=== PATIENT | male | born 2005 | race African-American/Black ===

== ENCOUNTER 2025-11-10 13:44 | Emergency (ER) | payer MEDICAID ==
[~2025-11-10] VITALS: Ht 167.6 cm; Wt 79.0 kg
[2025-11-10 13:56] VITALS: O2SAT 99
[2025-11-10] MEDS: DOCUSATE SODIUM SUGAR FREE 100MG/10ML UDC NG ONE (16:16)
[2025-11-10] MEDS ORDERED: DOCUSATE SODIUM SUGAR FREE 100MG/10ML UDC NG ONE (16:45)
[2025-11-10 17:17] VITALS: BP 121/85; PULSE 64; RESP 16; TEMP 36.3; O2SAT 99
== END 2025-11-10 17:18 | disposition home or self-care (01) ==
LOC: ER 13:44
DX: H61.23 Impacted cerumen, bilateral (principal)
CPT/HCPCS: 69210; 99284